=== PATIENT | female | born 1980 | race Caucasian/White ===

== ENCOUNTER 2016-06-01 13:46 | Emergency (ER) | payer SELFPAY ==
--- NOTE | 2016-06-01 13:56 | ER Document Report ---
ED Medical Screen (RME) - General Stated Complaint: SEIZURE Notes: EMS report states patient was post ictal on arrival. Vital signs were good. Patient has a history of seizures, but has been out of her medication for a couple weeks. She usually takes phenobarbital. Patient denies primary care provider. Patient complains of a headache, no other symptoms. [facility] I have greeted and performed a rapid initial assessment of this patient. A comprehensive ED assessment and evaluation of the patient, analysis of test results and completion of the medical decision making process will be conducted by additional ED providers. TRAVEL OUTSIDE OF THE [place] IN LAST 30 DAYS: No - Related Data Allergies/Adverse Reactions: amoxicillin [Amoxicillin] Allergy (Verified 06/18/14 13:58) erythromycin base [Erythromycin Base] Allergy (Verified 06/18/14 13:58) Penicillins Allergy (Verified 06/18/14 13:58) Past Medical History Neurological Medical History: Reports: Hx Seizures Past Surgical History: Reports: Hx Cardiac Surgery - implanted heart monitor, Hx Cholecystectomy, Hx Orthopedic Surgery - back - Immunizations Hx Diphtheria, Pertussis, Tetanus Vaccination: Yes Physical Exam - General General appearance: Alert, Other - crying, states she has to be in [place] by 7p - Respiratory Respiratory status: No respiratory distress Breath sounds: Normal
[2016-06-01 13:59] VITALS: BP 138/81
[2016-06-01 14:21] LABS: ABSOLUTE BASOPHILS # (AUTO) 0.1 10^3/uL (0.0-0.2); ABSOLUTE EOSINOPHILS # (AUTO) 0.2 10^3/uL (0.0-0.6); ABSOLUTE LYMPHOCYTES (AUTO) 2.2 10^3/uL (0.5-4.7); ABSOLUTE MONOCYTES (AUTO) 0.9 10^3/uL (0.1-1.4); ABSOLUTE NEUT (AUTO) 4.2 10^3/uL (1.7-8.2); BASOPHILS % (AUTO) 0.9 % (0-2); EOSINOPHILS % (AUTO) 2.2 % (0-6); HEMOGLOBIN 15.6 g/dL (12.0-15.5); HGB HCT DIFFERENCE 0.8; LYMPHOCYTES % (AUTO) 29.1 % (13-45); MEAN CORPUSCULAR HEMOGLOBIN 30.5 pg (27.0-33.4); MEAN CORPUSCULAR HGB CONC 33.9 g/dL (32.0-36.0); MEAN CORPUSCULAR VOLUME 90 fl (80-97); MONOCYTES % (AUTO) 12.2 % (3-13); RED BLOOD COUNT 5.12 10^6/uL (3.72-5.28); RED CELL DISTRIBUTION WIDTH 14.1 % (11.5-14.0); SEGMENTED NEUTROPHILS % (AUTO) 55.6 % (42-78); WHITE BLOOD COUNT 7.6 10^3/uL (4.0-10.5)
[2016-06-01 14:36] LABS: ALANINE AMINOTRANSFERASE 34 U/L (9-52); ALBUMIN 4.5 g/dL (3.5-5.0); ALKALINE PHOSPHATASE 81 U/L (38-126); ANION GAP 10 (5-19); ASPARTATE AMINO TRANSFERASE 17 U/L (14-36); BILIRUBIN,TOTAL 0.5 mg/dL (0.2-1.3); BLOOD UREA NITROGEN 9 mg/dL (7-20); CALCIUM 9.9 mg/dL (8.4-10.2); CARBON DIOXIDE 29 mmol/L (22-30); CHLORIDE 103 mmol/L (98-107); CREATININE RESULT 0.69 mg/dL (0.52-1.25); GLUCOSE 96 mg/dL (75-110); POTASSIUM 4.8 mmol/L (3.6-5.0); SODIUM 141.7 mmol/L (137-145); TOTAL PROTEIN 7.5 g/dL (6.3-8.2)
== END 2016-06-01 14:15 | disposition left against medical advice (07) ==
LOC: ER 13:46
DX: R56.9 Unspecified convulsions (principal); T42.3X6A Underdosing of barbiturates, initial encounter; Z91.14 Patient's other noncompliance with medication regimen; R51 Headache; R11.10 Vomiting, unspecified; Z88.0 Allergy status to penicillin; Z88.1 Allergy status to other antibiotic agents; Z53.20 Procedure and treatment not carried out because of patient's decision for unspecified reasons
CPT/HCPCS: 36415; 80053; 85025; 99281

== ENCOUNTER 2016-08-14 18:32 | Emergency (ER) | payer SELFPAY ==
[2016-08-14 18:56] LABS: ABSOLUTE BASOPHILS # (AUTO) 0.1 10^3/uL (0.0-0.2); ABSOLUTE EOSINOPHILS # (AUTO) 0.2 10^3/uL (0.0-0.6); ABSOLUTE LYMPHOCYTES (AUTO) 2.7 10^3/uL (0.5-4.7); ABSOLUTE MONOCYTES (AUTO) 0.7 10^3/uL (0.1-1.4); BASOPHILS % (AUTO) 0.8 % (0-2); EOSINOPHILS % (AUTO) 1.8 % (0-6); HEMATOCRIT 41.8 % (36.0-47.0); HGB HCT DIFFERENCE 0.2; LYMPHOCYTES % (AUTO) 28.2 % (13-45); MEAN CORPUSCULAR HEMOGLOBIN 30.8 pg (27.0-33.4); MEAN CORPUSCULAR HGB CONC 33.4 g/dL (32.0-36.0); MEAN CORPUSCULAR VOLUME 92 fl (80-97); MONOCYTES % (AUTO) 7.5 % (3-13); RED BLOOD COUNT 4.54 10^6/uL (3.72-5.28); RED CELL DISTRIBUTION WIDTH 13.3 % (11.5-14.0); SEGMENTED NEUTROPHILS % (AUTO) 61.7 % (42-78); WHITE BLOOD COUNT 9.7 10^3/uL (4.0-10.5)
[2016-08-14 19:16] LABS: ALANINE AMINOTRANSFERASE 23 U/L (9-52); ALCOHOL < 10 mg/dL (NONE DETECTED); ALKALINE PHOSPHATASE 68 U/L (38-126); ANION GAP 9 (5-19); ASPARTATE AMINO TRANSFERASE 18 U/L (14-36); BILIRUBIN,DIRECT 0.3 mg/dL (0.0-0.4); BILIRUBIN,TOTAL 0.5 mg/dL (0.2-1.3); BLOOD UREA NITROGEN 9 mg/dL (7-20); CALCIUM 8.7 mg/dL (8.4-10.2); CARBON DIOXIDE 23 mmol/L (22-30); CHLORIDE 106 mmol/L (98-107); CREATININE RESULT 0.72 mg/dL (0.52-1.25); GLUCOSE 97 mg/dL (75-110); MAGNESIUM 1.9 mg/dL (1.6-2.3); POTASSIUM 3.7 mmol/L (3.6-5.0); SODIUM 138.3 mmol/L (137-145); TOTAL PROTEIN 7.4 g/dL (6.3-8.2)
[2016-08-14] MEDS ORDERED: PHENOBARBITAL 64.8 MG TABLET PO ONE (19:39)
[2016-08-14] MEDS ORDERED: KETOROLAC TROMETHAMINE INJ/PF 30 MG/1 ML SDV IV ONE (20:00)
--- NOTE | 2016-08-14 20:00 | ER Document Report ---
ED General - General Chief Complaint: Seizure Stated Complaint: POSSIBLE SEIZURE Time Seen by Provider: 08/14/16 18:48 Mode of Arrival: Medic Information source: Patient Notes: 35-year-old female presents with a history of seizure disorder stating that she has not been taking her phenobarbital. Patient denies any fevers chills notes she was at work and had a seizure lasting a few minutes. Patient states she knows she has been having seizures since she has not been taking her medications as prescribed TRAVEL OUTSIDE OF THE [place] IN LAST 30 DAYS: No - HPI Onset: Just prior to arrival Onset/Duration: Sudden Quality of pain: Achy Severity: Mild Pain Level: 1 Associated symptoms: Headache Exacerbated by: Denies Relieved by: Denies Similar symptoms previously: Yes Recently seen / treated by doctor: Yes - Related Data Allergies/Adverse Reactions: amoxicillin [Amoxicillin] Allergy (Verified 08/14/16 19:00) erythromycin base [Erythromycin Base] Allergy (Verified 08/14/16 19:00) Penicillins Allergy (Verified 08/14/16 19:00) Home Medications: Current Home Medications No Home Medications 08/14/16 [History] Past Medical History - Social History Smoking Status: Current Every Day Smoker Cigarette use (# per day): Yes Chew tobacco use (# tins/day): No Smoking Education Provided: No Frequency of alcohol use: None Drug Abuse: None Family History: Reviewed & Not Pertinent Neurological Medical History: Reports: Hx Seizures Renal/ Medical History: Denies: Hx Peritoneal Dialysis Past Surgical History: Reports: Hx Cardiac Surgery - implanted heart monitor, Hx Cholecystectomy, Hx Orthopedic Surgery - back - Immunizations Hx Diphtheria, Pertussis, Tetanus Vaccination: Yes Review of Systems - Review of Systems Notes: REVIEW OF SYSTEMS: CONSTITUTIONAL : Denies fever, chills, or sweats. Denies recent illness. EENT: Denies eye, ear, throat, or mouth pain or symptoms. Denies nasal or sinus congestion or discharge. Denies throat, tongue, or mouth swelling or difficulty swallowing. CARDIOVASCULAR: Denies chest pain. Denies palpitations or racing or irregular heart beat. Denies ankle edema. RESPIRATORY: Denies cough, cold, or chest congestion. Denies shortness of breath, difficulty breathing, or wheezing. GASTROINTESTINAL: Denies abdominal pain or distention. Denies nausea, vomiting , or diarrhea. Denies blood in vomitus, stools, or per rectum. Denies black, tarry stools. Denies constipation. GENITOURINARY: Denies difficulty urinating, painful urination, burning, frequency, blood in urine, or discharge. FEMALE GENITOURINARY: Denies vaginal bleeding, heavy or abnormal periods, irregular periods. Denies vaginal discharge or odor. MUSCULOSKELETAL: Denies back or neck pain or stiffness. Denies joint pain or swelling. SKIN: Denies rash, lesions or sores. HEMATOLOGIC : Denies easy bruising or bleeding. LYMPHATIC: Denies swollen, enlarged glands. NEUROLOGICAL: admits to seizure admits to mild headache PSYCHIATRIC: Denies anxiety or stress. Denies depression, suicidal ideation, or homicidal ideation. ALL OTHER SYSTEMS REVIEWED AND NEGATIVE. Dictation was performed using [employer] voice recognition software PHYSICAL EXAMINATION: GENERAL: Well-appearing, well-nourished and in no acute distress. HEAD: Atraumatic, normocephalic. EYES: Pupils equal round and reactive to light, extraocular movements intact, conjunctiva are normal. ENT: Nares patent, oropharynx clear without exudates. Moist mucous membranes. NECK: Normal range of motion, supple without lymphadenopathy LUNGS: Breath sounds clear to auscultation bilaterally and equal. No wheezes rales or rhonchi. HEART: Regular rate and rhythm without murmurs ABDOMEN: Soft, nontender, nondistended abdomen. No guarding, no rebound. No masses appreciated. Female : deferred Musculoskeletal: Normal range of motion, no pitting or edema. No cyanosis. NEUROLOGICAL: Cranial nerves grossly intact. Normal speech, normal gait. Normal sensory, motor exams PSYCH: Normal mood, normal affect. SKIN: Warm, Dry, normal turgor, no rashes or lesions noted. Physical Exam - Vital signs Vitals: Temp Resp Pulse Ox 97.9 F 7 L 98 08/14/16 18:48 08/14/16 18:48 08/14/16 18:48 Course - Re-evaluation Re-evalutation: 08/14/16 19:58 Labwork notes no significant abnormality, a phenobarbital level was not performed given that patient states she has not taken any in the past 2 months. Patient otherwise is stable for discharge, I have insisted that she take her phenobarbital After performing a Medical Screening Examination, I estimate there is LOW risk for ACUTE GLAUCOMA, TEMPORAL ARTERITIS, MENINGITIS, INCRANIAL HEMORRHAGE, or ISCHEMIC STROKE thus I consider the discharge disposition reasonable. I have reevaluated this patient multiple times and no significant life threatening changes are noted. The patient and I have discussed the diagnosis and risks, and we agree with discharging home with close follow-up with the understanding that symptoms and presentations can change. We also discussed returning to the Emergency Department immediately if new or worsening symptoms occur. We have discussed the symptoms which are most concerning (e.g., changing or worsening symptoms, new numbness or weakness, vomiting, fever) that necessitate immediate return. 08/14/16 22:52 - Vital Signs Vital signs: Temp Pulse Resp BP Pulse Ox 97.9 F 54 L 16 121/67 97 08/14/16 18:48 08/14/16 20:03 08/14/16 20:03 08/14/16 20:03 08/14/16 20:03 - Laboratory Result Diagrams: 08/14/16 18:43 08/14/16 18:43 Laboratory results interpreted by me: 08/14/16 20:09 Urine Protein 30 H Urine Ketones TRACE H Ur Leukocyte Esterase SMALL H Discharge - Discharge Clinical Impression: Seizure-like activity, Noncompliance with medication regimen Condition: Stable Disposition: HOME, SELF-CARE Instructions: Seizure, Known Epileptic ([facility]) Additional Instructions: Please take your phenobarbital, you will seize if this medication is not taken appropriately Return immediately for any other concerns Forms: Return to Work, Work Clearance Referrals: PETAR JOSHI MD [ACTIVE STAFF] - Follow up tomorrow
[2016-08-14 20:03] VITALS: BP 121/67
[2016-08-14 20:25] LABS: APPEARANCE,URINE SLIGHTLY-CLOUDY; BILIRUBIN,URINE NEGATIVE (NEGATIVE); GLUCOSE, URINE NEGATIVE (NEGATIVE); KETONES,URINE TRACE mg/dL (NEGATIVE); LEUKOCYTE ESTERASE,URINE SMALL (NEGATIVE); NITRITE,URINE NEGATIVE (NEGATIVE); PROTEIN,URINE 30 mg/dL (NEGATIVE); URINE SPECIFIC GRAVITY 1.019; UROBILINOGEN,URINE NEGATIVE mg/dL (<2.0)
[2016-08-14 20:38] LABS: URINE BARBITURATES SCREEN UNCONFIRMED POSITIVE; URINE METHADONE SCREEN NEGATIVE; URINE OPIATES LOW NEGATIVE; URINE PHENCYCLIDINE SCREEN NEGATIVE
== END 2016-08-14 20:13 | disposition home or self-care (01) ==
LOC: ER 18:32
DX: G40.909 Epilepsy, unspecified, not intractable, without status epilepticus (principal); R51 Headache; F17.210 Nicotine dependence, cigarettes, uncomplicated; Z91.14 Patient's other noncompliance with medication regimen; Z88.0 Allergy status to penicillin; Z88.3 Allergy status to other anti-infective agents; Z90.49 Acquired absence of other specified parts of digestive tract
CPT/HCPCS: 99284; 96374; 36415; 80307 ×2; 83735; 84703; 85025; 80053; 81001; J1885; J3490

== ENCOUNTER 2016-12-30 20:26 | Emergency (ER) | payer BC ==
[2016-12-30 22:29] LABS: HEMATOCRIT 40.7 % (36.0-47.0); HEMOGLOBIN 13.9 g/dL (12.0-15.5); MEAN CORPUSCULAR HEMOGLOBIN 31.5 pg (27.0-33.4); MEAN CORPUSCULAR HGB CONC 34.2 g/dL (32.0-36.0); MEAN CORPUSCULAR VOLUME 92 fl (80-97); RED BLOOD COUNT 4.42 10^6/uL (3.72-5.28); RED CELL DISTRIBUTION WIDTH 13.8 % (11.5-14.0); WHITE BLOOD COUNT 7.2 10^3/uL (4.0-10.5)
[2016-12-30 22:39] LABS: ALANINE AMINOTRANSFERASE 36 U/L (9-52); ALKALINE PHOSPHATASE 69 U/L (38-126); ANION GAP 11 (5-19); ASPARTATE AMINO TRANSFERASE 21 U/L (14-36); BILIRUBIN,DIRECT 0.3 mg/dL (0.0-0.4); BILIRUBIN,TOTAL 0.5 mg/dL (0.2-1.3); BLOOD UREA NITROGEN 12 mg/dL (7-20); CALCIUM 9.1 mg/dL (8.4-10.2); CARBON DIOXIDE 27 mmol/L (22-30); CHLORIDE 106 mmol/L (98-107); CREATININE RESULT 0.76 mg/dL (0.52-1.25); GLUCOSE 88 mg/dL (75-110); SODIUM 143.8 mmol/L (137-145); TOTAL PROTEIN 6.4 g/dL (6.3-8.2)
[2016-12-31] MEDS ORDERED: NORMAL SALINE 1000 ML 1,000 ML IV PRN (00:09)
[2016-12-31] MEDS ORDERED: LORAZEPAM INJ 2 MG/1 ML VIAL IV ONE (00:09)
[2016-12-31] MEDS ORDERED: IBUPROFEN 400 MG TABLET PO ONE (00:09)
--- NOTE | 2016-12-31 00:10 | ER Document Report ---
ED General - General Chief Complaint: Seizure Stated Complaint: POSSIBLE SEIZURE Time Seen by Provider: 12/30/16 23:58 Mode of Arrival: Medic Information source: Patient Notes: This is a 36-year-old female with a history of seizure disorder presents to the emergency room with multiple seizures today. Patient does state that yesterday she "felt sickly". She does describe having some stomach cramping and vomiting. She states that those symptoms resolved and she was having the seizures today. She denies any fevers, cough, shortness of breath. TRAVEL OUTSIDE OF THE [place] IN LAST 30 DAYS: No - HPI Onset: This afternoon Onset/Duration: Gradual Quality of pain: Dull Severity: Mild Pain Level: 1 Associated symptoms: Nausea, Vomiting. denies: Chills, Fever, Shortness of breath Exacerbated by: Denies Relieved by: Denies Similar symptoms previously: Yes Recently seen / treated by doctor: Yes - Related Data Allergies/Adverse Reactions: amoxicillin [Amoxicillin] Allergy (Verified 12/30/16 20:29) erythromycin base [Erythromycin Base] Allergy (Verified 12/30/16 20:29) levetiracetam [From Keppra] Allergy (Verified 12/30/16 20:29) Penicillins Allergy (Verified 12/30/16 20:29) Past Medical History - General Information source: Patient - Social History Smoking Status: Current Every Day Smoker Cigarette use (# per day): No Chew tobacco use (# tins/day): No Frequency of alcohol use: None Drug Abuse: Marijuana Lives with: Family Family History: Reviewed & Not Pertinent Patient has suicidal ideation: No Patient has homicidal ideation: No - Past Medical History Cardiac Medical History: Reports: None Pulmonary Medical History: Reports: None Neurological Medical History: Reports: Hx Seizures Endocrine Medical History: Reports: None Renal/ Medical History: Denies: Hx Peritoneal Dialysis Malignancy Medical History: Reports: None GI Medical History: Reports: None Musculoskeltal Medical History: Reports None Skin Medical History: Reports None Psychiatric Medical History: Reports: None Traumatic Medical History: Reports: None Infectious Medical History: Reports: None Past Surgical History: Reports: Hx Cardiac Surgery - implanted heart monitor, Hx Cholecystectomy, Hx Orthopedic Surgery - back - Immunizations Hx Diphtheria, Pertussis, Tetanus Vaccination: Yes - 2013 Review of Systems - Review of Systems Constitutional: Chills. denies: Fever EENT: No symptoms reported Cardiovascular: No symptoms reported Respiratory: No symptoms reported Gastrointestinal: See HPI Genitourinary: No symptoms reported Female Genitourinary: No symptoms reported Musculoskeletal: Muscle stiffness Skin: No symptoms reported Hematologic/Lymphatic: No symptoms reported Neurological/Psychological: See HPI Physical Exam - Vital signs Notes: Physical exam: GENERAL: 36-year-old female, alert and oriented 3, no acute distress HEAD: Atraumatic, normocephalic. EYES: Pupils equal round and reactive to light, extraocular movements intact, sclera anicteric, conjunctiva are normal. ENT: TMs normal, nares patent, oropharynx clear without exudates. Moist mucous membranes. NECK: Normal range of motion, supple without obvious mass or JVD. LUNGS: Breath sounds clear to auscultation bilaterally and equal. No wheezes rales or rhonchi. HEART: Regular rate and rhythm without murmurs, rubs or gallops. ABDOMEN: Soft, normoactive bowel sounds. No tenderness to palpation. No guarding, no rebound. No masses appreciated. EXTREMITIES: Normal range of motion, no pitting or edema. No clubbing or cyanosis. NEUROLOGICAL: Cranial nerves II through XII grossly intact. Normal speech, moving all extremities. Motor 5/5, sensory grossly intact. PSYCH: Normal mood, normal affect. SKIN: Warm, Dry, normal turgor, no rashes or lesions noted. Course - Re-evaluation Re-evalutation: 12/31/16 02:34 Patient given IV fluids, ibuprofen and Ativan. She was observed several hours and is been doing fine. The phenobarbital level set is a send out lab and will not come back for several days. The patient will follow up with her neurologist. - Laboratory Result Diagrams: 12/30/16 21:21 12/30/16 21:21 Discharge - Discharge Clinical Impression: Seizures Condition: Stable Disposition: HOME, SELF-CARE Instructions: Seizure, Known Epileptic ([facility]) Additional Instructions: Recommendations: Keep in mind that reduced sleep and increased stress will lower the seizure threshold and precipitate seizures and those with epilepsy. Recommend drinking fluids, getting good rest and avoiding stress. Continue current antiseizure medicines. Follow-up with your neurologist Dr. Joshi Return to the emergency room for any concerns that she is seizures are getting worse. Thank you for choosing [facility] for your care. The examination and treatment you have received in the Emergency Department today has been rendered on an emergency basis only and is not intended to be a substitute for complete medical care. You should contact your follow-up physician as it is important that he or she examine you for any new or remaining problems. If given a copy of any lab tests or radiology reports, please bring them with you when you see your physician. If your problem worsens or new symptoms appear and you are unable to arrange prompt follow-up care, return to the Emergency Department. Specific signs to look out for: Fevers, chills, worsening seizures, not tolerating seizure medicines. Any other instructions: Follow up with the neurologist as discussed. Forms: Return to Work Referrals: PETAR JOSHI MD [ACTIVE STAFF] - 01/02/17
== END 2016-12-31 02:40 | disposition home or self-care (01) ==
LOC: ER 20:26
DX: R56.9 Unspecified convulsions (principal); R11.2 Nausea with vomiting, unspecified; F17.200 Nicotine dependence, unspecified, uncomplicated; Z88.0 Allergy status to penicillin; Z88.3 Allergy status to other anti-infective agents; Z90.49 Acquired absence of other specified parts of digestive tract
CPT/HCPCS: 99284; 96361; 96374; 36415; 84703; 80184; 85027; 80053; J3490; J2060; J7030

== ENCOUNTER → 2017-05-02 | Outpatient (CLI) | payer SELFPAY ==
--- NOTE | 2017-05-02 15:53 | RADIOLOGY REPORT (SQ) ---
EXAM DESCRIPTION: U/S OB TRANSVAGINAL W/O DOP COMPLETED DATE/TIME: 05/02/2017 3:23 pm REASON FOR STUDY: FIRST TRIMESTER SIZE AND DATE Z34.81 ENCOUNTER FOR SUPRVSN OF NORMAL , FIRST TRIM COMPARISON: None. TECHNIQUE: Transvaginal static and realtime grayscale images acquired of the pelvis. Additional sivakumar cted spectral and color Doppler images recorded. All images stored on PACs. bHCG: Not available. LIMITATIONS: None. FINDINGS: FETUS: Living intrauterine . EGA: 6 weeks 5 days RYAN: 12/21/2017 FHR: 139 beats per minute. SUBCHORIONIC BLEED: No. SIZE OF BLEED: Not applicable. UTERUS: No masses. No anomalies. CERVICAL LENGTH: 2.9 cm Closed. RIGHT ADNEXA: Normal ovary with normal vascular flow. No adnexal free fluid. No adnexal masses. LEFT ADNEXA: Normal ovary with normal vascular flow. No adnexal free fluid. No adnexal masses. FREE FLUID: None. OTHER: No other significant finding. IMPRESSION: LIVING INTRAUTERINE . EGA 6 weeks 5 days Trimester of : First - 0 to 13 weeks. TECHNICAL DOCUMENTATION: JOB ID: [id number] [employer]- All Rights Reserved
== END ==
LOC: RAD 13:39
PROVIDERS: ATTEND Nurse Practitioner Women's Health
DX: Z34.81 Encounter for supervision of other normal pregnancy, first trimester (principal)
CPT/HCPCS: 76817

== ENCOUNTER 2017-05-06 07:20 | Emergency (ER) | payer SELFPAY ==
[2017-05-06] MEDS ORDERED: METOCLOPRAMIDE HCL INJ/PF 10 MG/2 ML SDV IV ONE (08:14)
[2017-05-06] MEDS: NORMAL SALINE 1000 ML 1,000 ML IV PRN ×2 (08:26→08:27)
[2017-05-06 08:29] LABS: ABSOLUTE BASOPHILS # (AUTO) 0.1 10^3/uL (0.0-0.2); ABSOLUTE LYMPHOCYTES (AUTO) 1.7 10^3/uL (0.5-4.7); ABSOLUTE MONOCYTES (AUTO) 0.7 10^3/uL (0.1-1.4); ABSOLUTE NEUT (AUTO) 11.5 10^3/uL (1.7-8.2); BASOPHILS % (AUTO) 0.8 % (0-2); EOSINOPHILS % (AUTO) 0.2 % (0-6); HEMATOCRIT 43.3 % (36.0-47.0); HEMOGLOBIN 14.8 g/dL (12.0-15.5); LYMPHOCYTES % (AUTO) 11.9 % (13-45); MEAN CORPUSCULAR HEMOGLOBIN 30.9 pg (27.0-33.4); MEAN CORPUSCULAR HGB CONC 34.1 g/dL (32.0-36.0); MEAN CORPUSCULAR VOLUME 91 fl (80-97); MONOCYTES % (AUTO) 5.2 % (3-13); PLATELET COUNT 254 10^3/uL (150-450); RED BLOOD COUNT 4.78 10^6/uL (3.72-5.28); RED CELL DISTRIBUTION WIDTH 13.5 % (11.5-14.0); SEGMENTED NEUTROPHILS % (AUTO) 81.9 % (42-78); TOTAL CELLS COUNTED % (AUTO) 100 %; WHITE BLOOD COUNT 14.1 10^3/uL (4.0-10.5)
[2017-05-06 08:55] LABS: ALANINE AMINOTRANSFERASE 28 U/L (9-52); ALBUMIN 4.2 g/dL (3.5-5.0); ALKALINE PHOSPHATASE 71 U/L (38-126); ANION GAP 11 (5-19); ASPARTATE AMINO TRANSFERASE 19 U/L (14-36); BILIRUBIN,DIRECT 0.4 mg/dL (0.0-0.4); BILIRUBIN,TOTAL 0.6 mg/dL (0.2-1.3); BLOOD UREA NITROGEN 9 mg/dL (7-20); CALCIUM 9.6 mg/dL (8.4-10.2); CARBON DIOXIDE 24 mmol/L (22-30); CHLORIDE 103 mmol/L (98-107); GLUCOSE 129 mg/dL (75-110); LIPASE 58.8 U/L (23-300); SODIUM 137.7 mmol/L (137-145); TOTAL PROTEIN 7.4 g/dL (6.3-8.2)
[2017-05-06 09:41] LABS: APPEARANCE,URINE SLIGHTLY-CLOUDY; BILIRUBIN,URINE NEGATIVE (NEGATIVE); COLOR,URINE YELLOW; GLUCOSE, URINE NEGATIVE (NEGATIVE); KETONES,URINE 80 mg/dL (NEGATIVE); LEUKOCYTE ESTERASE,URINE NEGATIVE (NEGATIVE); NITRITE,URINE NEGATIVE (NEGATIVE); PROTEIN,URINE NEGATIVE (NEGATIVE); URINE SPECIFIC GRAVITY 1.025
--- NOTE | 2017-05-06 10:09 | ER Document Report ---
ED General - General Chief Complaint: Nausea/Vomiting Stated Complaint: VOMITING Time Seen by Provider: 05/06/17 08:13 TRAVEL OUTSIDE OF THE [place] IN LAST 30 DAYS: No - HPI Patient complains to provider of: Nausea vomiting Notes: Patient coming in for evaluation nausea vomiting. Patient is currently 6 weeks she is a . Patient denies any vaginal bleeding or vaginal discharge. States nausea vomiting occurred in the last 48 hours. States did have one episode of diarrhea. No other sick contacts. Patient denies any recent travel. Patient denies any past medical issues except for seizures.. Patient resting currently upon my evaluation. Denies trying any medications for her nausea at home. - Related Data Allergies/Adverse Reactions: amoxicillin [Amoxicillin] Allergy (Verified 05/06/17 07:24) erythromycin base [Erythromycin Base] Allergy (Verified 05/06/17 07:24) levetiracetam [From Keppra] Allergy (Verified 05/06/17 07:24) Penicillins Allergy (Verified 05/06/17 07:24) Past Medical History - Social History Smoking Status: Current Every Day Smoker Frequency of alcohol use: None Drug Abuse: None Family History: Reviewed & Not Pertinent Patient has suicidal ideation: No Patient has homicidal ideation: No Neurological Medical History: Reports: Hx Seizures Renal/ Medical History: Denies: Hx Peritoneal Dialysis Past Surgical History: Reports: Hx Cardiac Surgery - implanted heart monitor, Hx Cholecystectomy, Hx Orthopedic Surgery - back - Immunizations Hx Diphtheria, Pertussis, Tetanus Vaccination: Yes - 2013 Review of Systems - Review of Systems Constitutional: No symptoms reported EENT: No symptoms reported Cardiovascular: No symptoms reported Respiratory: No symptoms reported Gastrointestinal: Diarrhea, Nausea, Vomiting Genitourinary: No symptoms reported Female Genitourinary: No symptoms reported Musculoskeletal: No symptoms reported Skin: No symptoms reported Hematologic/Lymphatic: No symptoms reported Neurological/Psychological: No symptoms reported -: Yes All other systems reviewed and negative Physical Exam - Vital signs Vitals: Temp Pulse Resp BP Pulse Ox 98.1 F 83 18 147/71 H 100 05/06/17 07:33 05/06/17 07:33 05/06/17 07:33 05/06/17 07:33 05/06/17 07:33 Interpretation: Normal - General General appearance: Appears well, Alert - HEENT Head: Normocephalic, Atraumatic Eyes: Normal Pupils: PERRL - Respiratory Respiratory status: No respiratory distress Chest status: Nontender Breath sounds: Normal Chest palpation: Normal - Cardiovascular Rhythm: Regular Heart sounds: Normal auscultation Murmur: No - Abdominal Inspection: Normal Distension: No distension Bowel sounds: Normal Tenderness: Nontender Organomegaly: No organomegaly - Back Back: Normal, Nontender - Extremities General upper extremity: Normal inspection, Nontender, Normal color, Normal ROM , Normal temperature General lower extremity: Normal inspection, Nontender, Normal color, Normal ROM , Normal temperature, Normal weight bearing. No: Pat's sign - Neurological Neuro grossly intact: Yes Cognition: Normal Orientation: AAOx4 Roscoe Coma Scale Eye Opening: Spontaneous Noel Coma Scale Verbal: Oriented Noel Coma Scale Motor: Obeys Commands Noel Coma Scale Total: 15 Speech: Normal Motor strength normal: LUE, RUE, LLE, RLE Sensory: Normal - Psychological Associated symptoms: Normal affect, Normal mood - Skin Skin Temperature: Warm Skin Moisture: Dry Skin Color: Normal Course - Re-evaluation Re-evalutation: 05/06/17 15:15 The patient presents with nausea vomiting diarrhea without signs of peritonitis or other life-threatening or serious etiology. The patient appears stable for discharge and has been instructed to return immediately if the symptoms worsen in any way, or in 8-12hr if not improved for re-evaluation. The patient has been instructed to return if the symptoms worsen or change in any way. Labs revised not reveal any critical etiology. Patient able tolerate p.o. prior to discharge. - Vital Signs Vital signs: Temp Pulse Resp BP Pulse Ox 98.3 F 71 15 124/65 99 05/06/17 10:59 05/06/17 10:59 05/06/17 10:59 05/06/17 10:59 05/06/17 10:59 - Laboratory Result Diagrams: 05/06/17 08:15 05/06/17 08:15 Laboratory results interpreted by me: 05/06/17 05/06/17 05/06/17 08:15 08:15 09:09 WBC 14.1 H Seg Neutrophils % 81.9 H Lymphocytes % 11.9 L Absolute Neutrophils 11.5 H Glucose 129 H Beta HCG, Quant 55972.00 H Urine Ketones 80 H Urine Urobilinogen 2.0 H Urine Ascorbic Acid 40 H Discharge - Discharge Clinical Impression: Nausea/vomiting in Condition: Good Disposition: HOME, SELF-CARE Instructions: ([facility]), Vomiting ([facility]) Additional Instructions: Is your laboratory studies today urinalysis did not show any critical pathology. [place] [address]. sHe may take the Reglan for nausea if she cannot tolerate pills she may use the Phenergan suppositories. Do not use the Reglan and Phenergan together. I recommend following up with your [employer]ER or health department. Return to the ER for any concerns. For nausea and vomiting during I recomment: Start with 10-12.5 mg of pyridoxine (vitamin B6) three times a day for 2 days. If not fully effective, Increase to 12.5 mg of pyridoxine four times a day for 2 days. If not fully effective, Increase to 25 mg of pyridoxine three times a day for 2 days. If not fully effective, Continue 25 mg pyridoxine 3 times a day, and add 12.5 mg of doxylamine before bedtime each day for 2 days. If not fully effective, Continue 25 mg pyridoxine 3 times a day, and take 12.5 mg of doxylamine twice a day. If not fully effective, Continue 25 mg pyridoxine 3 times a day, and take 12.5 mg of doxylamine three times a day. If not fully effective, Continue 25 mg pyridoxine 3 times a day, and 12.5 mg of doxylamine 3 times a day , while adding Emetrol, one to two tablespoons (15-30 cc) taken once or twice a day as needed. (Emetrol is an [id number] mixture of sugar syrups and phosphoric acid [phosphorylated carbohydrate solution]) that acts by soothing the actual wall of the gastrointestinal tract). If not fully effective, Consult with your doctor. Prescriptions: Metoclopramide HCl [Reglan] 5 mg PO Q6 #30 tablet Promethazine HCl [Phenergan 25 mg Supp.rect] 1 supp MS Q6H #10 supp.rect Forms: Return to Work
[2017-05-06 11:14] VITALS: BP 124/65
== END 2017-05-06 10:59 | disposition home or self-care (01) ==
LOC: ER 07:20
DX: O26.891 Other specified pregnancy related conditions, first trimester (principal); R11.2 Nausea with vomiting, unspecified; N89.8 Other specified noninflammatory disorders of vagina; R19.7 Diarrhea, unspecified; Z3A.01 Less than 8 weeks gestation of pregnancy; F17.200 Nicotine dependence, unspecified, uncomplicated
CPT/HCPCS: 99284; 96361; 96374; 36415; 84702; 83690; 85025; 80053; 81001; J2765; J7030

== ENCOUNTER 2017-05-06 17:32 | Emergency (ER) | payer SELFPAY ==
[2017-05-06] MEDS ORDERED: HYDROCODONE/ACETAMINOPHEN 5-325 MG TABLET PO ONE (18:09)
--- NOTE | 2017-05-06 18:10 | ER Document Report ---
ED Seizure - General Chief Complaint: Possible seizure, vomiting Stated Complaint: VOMITING, POSSIBLE SEIZURE Time Seen by Provider: 05/06/17 18:07 Mode of Arrival: Wheelchair Information source: Patient Notes: Patient is a 36-year-old female with epilepsy who is also approximately 7 weeks who presents to the ER today for seizure prior to arrival. Boyfriend was with her and did witness the seizure, stating that it was approximately 5-7 minutes of generalized shaking that began as she was walking to the car whenever she told him "I am about to have a seizure." Patient states that she usually "hears a song come on" before her seizures start. Boyfriend states that she started seizing and he had to lay her down on the ground gently in the parking lot. He states patient did stop breathing probably for about 30 seconds during the seizure. Patient was on phenobarbital but when she found that she was she stopped it patient is not on any seizure medications at this time. - Related Data Allergies/Adverse Reactions: amoxicillin [Amoxicillin] Allergy (Verified 05/06/17 07:24) erythromycin base [Erythromycin Base] Allergy (Verified 05/06/17 07:24) levetiracetam [From Keppra] Allergy (Verified 05/06/17 07:24) Penicillins Allergy (Verified 05/06/17 07:24) Past Medical History - General Information source: Patient - Social History Smoking Status: Unknown if Ever Smoked Family History: Reviewed & Not Pertinent Neurological Medical History: Reports: Hx Seizures Renal/ Medical History: Denies: Hx Peritoneal Dialysis Past Surgical History: Reports: Hx Cardiac Surgery - implanted heart monitor, Hx Cholecystectomy, Hx Orthopedic Surgery - back - Immunizations Hx Diphtheria, Pertussis, Tetanus Vaccination: Yes - 2013 Review of Systems - Review of Systems Constitutional: No symptoms reported EENT: No symptoms reported Cardiovascular: No symptoms reported Respiratory: No symptoms reported Gastrointestinal: No symptoms reported Genitourinary: No symptoms reported Female Genitourinary: See HPI Musculoskeletal: No symptoms reported Skin: No symptoms reported Hematologic/Lymphatic: No symptoms reported Neurological/Psychological: See HPI Physical Exam - Vital signs Vitals: Pulse BP Pulse Ox 62 116/58 L 100 05/06/17 17:58 05/06/17 17:58 05/06/17 17:58 - Notes Notes: PHYSICAL EXAMINATION: GENERAL: Uncomfortable appearing, but in no acute distress. HEAD: Atraumatic, normocephalic. EYES: Pupils equal round and reactive to light, extraocular movements intact, sclera anicteric, conjunctiva are normal. NECK: Normal range of motion, supple without lymphadenopathy LUNGS: CTAB and equal. No wheezes rales or rhonchi. HEART: Regular rate and rhythm without murmurs ABDOMEN: Soft, no tenderness. No guarding, no rebound BACK: no vertebral tenderness, normal ROM GI/: no CVA tenderness EXTREMITIES: Normal range of motion, no pitting edema. No cyanosis. NEUROLOGICAL: Cranial nerves grossly intact. Normal sensory/motor exams. PSYCH: Normal mood, normal affect. SKIN: Warm, Dry, normal turgor, no rashes or lesions noted Course - Re-evaluation Re-evalutation: 05/06/17 18:49 heart tones were measured at 152 bpm. Patient did not want to wait on IV fluids and lab work and wants to just go home. I did order her 1 dose of something for her headache at this time, hydrocodone and will start her on seizure medication, I did call OBGYN who advises depakote at this time. She has a neurology appointment this week. - Vital Signs Vital signs: Temp Pulse Resp BP Pulse Ox 62 116/58 L 100 05/06/17 17:58 05/06/17 17:58 05/06/17 17:58 Discharge - Discharge Clinical Impression: Seizure Condition: Stable Disposition: HOME, SELF-CARE Prescriptions: Divalproex Sodium [Depakote] 500 mg PO TID #90 tablet.
[2017-05-06 18:57] VITALS: BP 120/71
== END 2017-05-06 18:44 | disposition home or self-care (01) ==
LOC: ER 17:32
DX: O26.891 Other specified pregnancy related conditions, first trimester (principal); R56.9 Unspecified convulsions; R11.10 Vomiting, unspecified; Z3A.01 Less than 8 weeks gestation of pregnancy
CPT/HCPCS: 99284

== ENCOUNTER → 2017-08-16 | Outpatient (CLI) | payer MEDICAID | LOC: OD 09:08 | PROVIDERS: ATTEND Midwife | DX: Z34.82 Encounter for supervision of other normal pregnancy, second trimester (principal); Z13.858 Encounter for screening for other nervous system disorders | CPT/HCPCS: 36415; 80184 ==

== ENCOUNTER → 2017-09-27 | Outpatient (CLI) | payer MEDICAID | LOC: OD 13:46 | PROVIDERS: ATTEND Specialist | DX: O09.93 Supervision of high risk pregnancy, unspecified, third trimester (principal); Z11.4 Encounter for screening for human immunodeficiency virus [HIV]; Z11.3 Encounter for screening for infections with a predominantly sexual mode of transmission; G40.89 Other seizures; Z79.899 Other long term (current) drug therapy | CPT/HCPCS: 36415; 80184; 86592; 86701 ==

== ENCOUNTER 2017-10-27 12:05 | Outpatient (CLI) | payer MEDICAID ==
[2017-10-27] MEDS ORDERED: ONDANSETRON HCL INJ/PF 4 MG/2 ML SDV IV ONE (12:22)
[2017-10-27] MEDS ORDERED: RINGERS SOLUTION,LACTATED 1,000 ML IV PRN (12:22)
[2017-10-27] MEDS ORDERED: ONDANSETRON HCL INJ/PF 4 MG/2 ML SDV ONE (12:27)
[2017-10-27 13:19] LABS: APPEARANCE,URINE CLEAR; BILIRUBIN,URINE NEGATIVE (NEGATIVE); COLOR,URINE YELLOW; GLUCOSE, URINE NEGATIVE (NEGATIVE); KETONES,URINE NEGATIVE (NEGATIVE); LEUKOCYTE ESTERASE,URINE NEGATIVE (NEGATIVE); NITRITE,URINE NEGATIVE (NEGATIVE); PROTEIN,URINE NEGATIVE (NEGATIVE); URINE SPECIFIC GRAVITY 1.013; UROBILINOGEN,URINE NEGATIVE mg/dL (<2.0)
--- NOTE | 2017-10-27 13:31 | Non Stress Test Report ---
Non Stress Test Datetime Report Generated by CPN: 10/27/2017 13:30 DEMOGRAPHIC Test Number: 1 EGA NST: 32.1 INDICATION Indication for Study: Diabetes Mellitus MONITORING Monitor Explained: Monitor Explained; Test Explained; Patient Verbalized Understanding Time on Monitor: 10/27/2017 12:31 Time off Monitor: 10/27/2017 13:04 NST Duration: 33 NST INTERVENTIONS NST Interventions: None Physician Notified NST: Dr. Lou BABY A: [id number] BABY A Movement : Present Contraction Frequency : 0 FHR Baseline : 135 Accelerations : 15X15 Decelerations : None Variability : Moderate 6-25bpm NST Review: Meets Criteria for Reactive NST NST Review and Verified By : Tom Colon, RN NST Results: Reactive NST REPORT Report Trigger: Send Report
[2017-10-27 13:36] LABS: URINE COCAINE SCREEN NEGATIVE; URINE METHADONE SCREEN NEGATIVE; URINE PHENCYCLIDINE SCREEN NEGATIVE
[2017-10-27 13:38] LABS: URINE AMPHETAMINES SCREEN NEGATIVE; URINE BENZODIAZEPINES SCREEN NEGATIVE
[2017-10-27 13:42] LABS: URINE BARBITURATES SCREEN UNCONFIRMED POSITIVE; URINE MARIJUANA (THC) SCREEN UNCONFIRMED POSITIVE
== END 2017-10-27 15:37 | disposition home or self-care (01) ==
LOC: LC 12:05
PROVIDERS: ATTEND Obstetrics & Gynecology Gynecology
PROC: 4A1HXCZ Monitoring of Products of Conception, Cardiac Rate, External Approach (ICD-10-PCS; principal; 2017-10-27)
DX: O24.419 Gestational diabetes mellitus in pregnancy, unspecified control (principal); Z3A.32 32 weeks gestation of pregnancy
CPT/HCPCS: 59025; 81001; 80307; J2405

== ENCOUNTER → 2017-11-06 | Outpatient (CLI) | payer MEDICAID | LOC: OD 10:14 | PROVIDERS: ATTEND Specialist | DX: G40.89 Other seizures (principal); Z79.899 Other long term (current) drug therapy | CPT/HCPCS: 36415; 80184 ==

== ENCOUNTER 2017-11-14 10:27 | Inpatient (IN) | payer MEDICAID ==
[2017-12-15] MEDS ORDERED: RINGERS SOLUTION,LACTATED 1,000 ML IV PRN (20:08)
[2017-12-15] MEDS ORDERED: ZOLPIDEM TARTRATE 5 MG TABLET PO PRN (20:13)
[2017-12-15] MEDS ORDERED: DINOPROSTONE 10 MG VAGINAL INSERT.SR PV ONE (20:13)
[2017-12-15] MEDS ORDERED: RINGERS SOLUTION,LACTATED 300 ML IV ONE (20:13)
[2017-12-15] MEDS ORDERED: ACETAMINOPHEN 325 MG TABLET PO PRN (20:13)
[2017-12-15] MEDS ORDERED: MAG HYDROX/AL HYDROX/SIMETH SUSP 30 ML UDCUP PO PRN (20:13)
[2017-12-15 20:42] LABS: ABSOLUTE BASOPHILS # (AUTO) 0.1 10^3/uL (0.0-0.2); ABSOLUTE EOSINOPHILS # (AUTO) 0.2 10^3/uL (0.0-0.6); ABSOLUTE LYMPHOCYTES (AUTO) 2.3 10^3/uL (0.5-4.7); ABSOLUTE MONOCYTES (AUTO) 0.9 10^3/uL (0.1-1.4); ABSOLUTE NEUT (AUTO) 11.2 10^3/uL (1.7-8.2); BASOPHILS % (AUTO) 0.5 % (0-2); EOSINOPHILS % (AUTO) 1.4 % (0-6); HEMATOCRIT 35.2 % (36.0-47.0); HEMOGLOBIN 12.1 g/dL (12.0-15.5); LYMPHOCYTES % (AUTO) 15.8 % (13-45); MEAN CORPUSCULAR HEMOGLOBIN 30.9 pg (27.0-33.4); MEAN CORPUSCULAR HGB CONC 34.3 g/dL (32.0-36.0); MEAN CORPUSCULAR VOLUME 90 fl (80-97); MONOCYTES % (AUTO) 6.4 % (3-13); PLATELET COUNT 218 10^3/uL (150-450); RED BLOOD COUNT 3.91 10^6/uL (3.72-5.28); RED CELL DISTRIBUTION WIDTH 14.2 % (11.5-14.0); SEGMENTED NEUTROPHILS % (AUTO) 75.9 % (42-78); TOTAL CELLS COUNTED % (AUTO) 100 %; WHITE BLOOD COUNT 14.7 10^3/uL (4.0-10.5)
[2017-12-15 20:59] LABS: APPEARANCE,URINE CLOUDY; BILIRUBIN,URINE NEGATIVE (NEGATIVE); COLOR,URINE YELLOW; GLUCOSE, URINE NEGATIVE (NEGATIVE); KETONES,URINE NEGATIVE (NEGATIVE); LEUKOCYTE ESTERASE,URINE SMALL (NEGATIVE); NITRITE,URINE NEGATIVE (NEGATIVE); PROTEIN,URINE NEGATIVE (NEGATIVE); URINE SPECIFIC GRAVITY 1.023
[2017-12-15] MEDS ORDERED: PHENOBARBITAL 64.8 MG TABLET PO SCH (21:00)
[2017-12-15 21:21] LABS: URINE AMPHETAMINES SCREEN NEGATIVE; URINE BENZODIAZEPINES SCREEN NEGATIVE; URINE COCAINE SCREEN NEGATIVE; URINE METHADONE SCREEN NEGATIVE; URINE PHENCYCLIDINE SCREEN NEGATIVE
[2017-12-15] MEDS ORDERED: DINOPROSTONE 10 MG VAGINAL INSERT.SR ONE (21:22)
[2017-12-15 21:26] LABS: URINE MARIJUANA (THC) SCREEN UNCONFIRMED POSITIVE
[2017-12-15 21:27] LABS: URINE BARBITURATES SCREEN UNCONFIRMED POSITIVE
[2017-12-15] MEDS ORDERED: INSULIN REG, HUMAN 100 UNIT/ML 3 ML VIAL (PYX) SUBCUT ONE (22:30)
[2017-12-15] MEDS ORDERED: INSULIN NPH (ISOPHANE), HUMAN 100 UNIT/ML 3 ML SUBCUT ONE (22:30)
[2017-12-15] MEDS ORDERED: INSULIN NPH (ISOPHANE), HUMAN 100 UNIT/ML 3 ML ONE (23:19)
[2017-12-15] MEDS ORDERED: PHENOBARBITAL 64.8 MG TABLET PO ONE (23:45)
[2017-12-16] MEDS ORDERED: INSULIN NPH (ISOPHANE), HUMAN 100 UNIT/ML 3 ML SUBCUT ONE (08:21)
[2017-12-16] MEDS ORDERED: INSULIN NPH (ISOPHANE), HUMAN 100 UNIT/ML 3 ML ONE (08:23)
[2017-12-16] MEDS ORDERED: OXYTOCIN/NORMAL SALINE 20 UNIT/1,000 ML RTUINJ IV PRN (09:00)
[2017-12-16] MEDS ORDERED: PHENOBARBITAL 64.8 MG TABLET ONE ×2 (11:06→22:18)
[2017-12-16] MEDS: PHENOBARBITAL 64.8 MG TABLET PO SCH ×2 (11:07→22:24)
[2017-12-16] MEDS ORDERED: OXYTOCIN 10 UNIT/ML VIAL ONE (12:26)
[2017-12-16] MEDS ORDERED: LIDOCAINE 1% INJ-PF (10 MG/ML) 30 ML SDV ONE (12:27)
[2017-12-16] MEDS ORDERED: MISOPROSTOL 0.2 MG TABLET ONE (12:27)
[2017-12-16] MEDS ORDERED: OXYTOCIN/NORMAL SALINE 20 UNIT/1,000 ML RTUINJ ONE (12:27)
--- NOTE | 2017-12-16 12:55 | Admission Physical ---
Datetime Report Generated by CPN: 12/16/2017 12:55 CURRENT ADMISSION Chief Complaint: Scheduled Induction of Labor Indication for Induction- Other: GDM A2 Admit Impression : Term, Intrauterine Admit Plan: Admit to Unit; Initiate Labor Induction Protocol ALLERGIES Medication Allergies: Yes Medication Allergies: Penicillins/SV/Hives (12/15/2017); erythromycin base/MO/Vomiting (12/15/2017); amoxicillin/SV/Hives (12/15/2017); levetiracetam/MO/Neurologic effe (12/15/2017) Latex: No Latex Allergies Food Allergies: None Environmental Allergies: None OBSTETRICAL HISTORY EDC: 12/21/2017 00:00 : 2 Para: 1 Term: 1 : 0 SAB: 0 IAB: 0 Ectopic: 0 Livin Cesareans: 0 VBACs: 0 Multiple Births: 0 Gestational Diabetes: Yes Rh Sensitization: No Incompetent Cervix: No RAZA: No Infertility: No ART Treatment: No Uterine Anomaly: No IUGR: Yes Hx Previous C/S: No Macrosomia: No Hx Loss/Stillborn: No PIH: No Hx : No Placenta Previa/Abruption: No Depression/PP Depression: No PTL/PROM: No Post Hemorrhage: No Current Procedures: Ultrasound; NST; BPP Obstetrical History Comments: G1 - 05/2006 - at 43weeks, [place] G2 - Current - GDM on insulin, AMA, iugr SEE RECORDS Alcohol: No Marijuana : Yes Previous Treatment: None Marijuana Comments: Uses marijuana for epilepsy - "helps to slow brain activity" Cocaine: No Other Illicit Drugs: No Cigarettes: Current Everyday Smoker. [id number] MEDICAL HISTORY Diabetes: No Blood Transfusion: No Pulmonary Disease (Asthma, TB): No Breast Disease: No Hypertension: No Nurses Superintendent Surgery: No Heart Disease: Yes Hosp/Surgery: Yes Autoimmune Disorder: No Anesthetic Complications: No Kidney Disease: No Abnormal Pap Smear: No Neuro/Epilepsy: Yes Psychiatric Disorders: No Other Medical Diseases: No Hepatitis/Liver Disease: No Significant Family History: No Varicosities/Phlebitis: No Trauma/Violence : No Thyroid Dysfunction: No Medical History Comments: Hx of abnormal heart beat - implanted registered nurse cardiac Epilepsy - on phenobabitol and THC (last seizure 04/2017) Hospitalized for childbirth, epilepsy, cholecystectomy, L1 discectomy, abnormal heart beat smoker-cigarettes and marijuana INFECTIOUS HISTORY Gonorrhea: No Genital Herpes: No Chlamydia: No Tuberculosis: No Syphilis: No Hepatitis: No HIV/AIDS Exposure: No Rash or Viral Illness: No HPV: No PHYSICAL EXAM General: Normal HEENT: Normal Neurologic: Normal Thyroid: Deferred Heart: Normal Lungs: Normal Breast: Normal Back: Normal Abdomen: Normal Genitourinary Exam: Normal Extremities: Normal DTRs: Deferred Pelvic Type: Adequate Physical Exam Comments: pelvis proven to 6lb Vital Signs: Reviewed; Within Normal Limits VAGINAL EXAM Dilatation: 3 Effacement: 70 Station: -2 Contraction Comments: irreg MEMBRANES Membranes: Intact FETUS A EGA: 39.2 Monitoring: External US FHR- Baseline: 120 Accelerations: 15X15 Decelerations: Variable FHR Category: Category II Estimated Weight (gm): 3200 Presentation: Vertex Admit Comment: dated by 10w sono, AMA, GDM on insulin, hx seizure disorder on phenobarbitol, tovacco use, implanted heart monitor, THC use for seizure disorder. admitted for IOL. anders balloon placed at 1230. P: start pitocin when FB out, anticipate PLANS FOR LABOR AND DELIVERY Labor and Delivery: None Pain Management: Natural Feeding Preference: Both Benefit of Breast Feed Discussed: Yes Circumcision: N/A INFORMED CONSENT Assignment: Fabiola Ruelas MD Signature: with User ID: [email or web address] : with User ID: [email or web address]
[2017-12-16] MEDS ORDERED: ACETAMINOPHEN 325 MG TABLET ONE (14:42)
[2017-12-16] MEDS ORDERED: ACETAMINOPHEN 325 MG TABLET PO ONE (15:30)
[2017-12-16] MEDS ORDERED: ONDANSETRON HCL INJ/PF 4 MG/2 ML SDV ONE (20:46)
[2017-12-16] MEDS ORDERED: PROMETHAZINE HCL INJ 25 MG/1 ML VIAL IV ONE (21:49)
[2017-12-16] MEDS ORDERED: NALBUPHINE HCL INJ 10 MG/1 ML AMPULE INJ ONE (21:49)
[2017-12-16] MEDS ORDERED: NALBUPHINE HCL INJ 10 MG/1 ML AMPULE ONE ×2 (21:50)
[2017-12-16] MEDS ORDERED: PROMETHAZINE HCL INJ 25 MG/1 ML VIAL ONE (21:50)
[2017-12-17] MEDS ORDERED: DIPH/PERTUSS(ACELL)/TETANUS VAC/PF 0.5 ML SYR (>=10YO) IM PRN (00:23)
[2017-12-17] MEDS ORDERED: BENZOCAINE/MENTHOL AEROSOL SPRAY 56 ML TOP PRN (00:23)
[2017-12-17] MEDS ORDERED: MEASLES,MUMPS&RUBELLA VACC/PF 0.5 ML VIAL SUBCUT PRN (00:23)
[2017-12-17] MEDS ORDERED: ACETAMINOPHEN WITH CODEINE #3 TABLET PO PRN ×2 (00:23)
[2017-12-17] MEDS ORDERED: DIBUCAINE 1% OINTMENT 28 GM TP PRN (00:23)
[2017-12-17] MEDS ORDERED: OXYTOCIN/NORMAL SALINE 20 UNIT/1,000 ML RTUINJ IV PRN (00:23)
[2017-12-17] MEDS ORDERED: ZOLPIDEM TARTRATE 5 MG TABLET PO PRN (00:23)
[2017-12-17] MEDS ORDERED: IBUPROFEN 800 MG TABLET ONE (00:25)
--- NOTE | 2017-12-17 03:25 | Delivery Summary ---
Del Sum A-C Datetime Report Generated by CPN: 12/17/2017 03:24 DELIVERY PERSONNEL DELIVERY PERSONNEL: [id number] Delivery Doctor:: Fabiola Ruelas MD Labor and Delivery Nurse:: Haylee Moreno RN Nursery Nurse:: Osiris Carey RN Forestry Consultant/DATA CONVERSION ANALYST: Nick Ertel, DATA CONVERSION ANALYST MATERNAL INFORMATION Delivery Anesthesia: None Medications After Delivery: Pitocin Drip 20 Units/1000ml NSS; Cytotec 1000mcg Per Rectum/Vagina Maternal Complications: None Provider Comments: of a viable female at 0007 with an OA presentation; APGARS 9 @ 1, 9 @5. No lacerations LABOR SUMMARY EDC: 12/21/2017 00:00 No. Babies in Womb: 1 Attempted: No Labor Anesthesia: IV Sedation LABOR INFORMATION Reason for Induction: Intrauterine Growth Retardation; Maternal Diabetes Onset of Labor: 12/16/2017 16:58 Complete Dilatation: 12/16/2017 23:54 Cervical Ripening Agents: Cervidil; Norman Balloon Oxytocin: Induction Group B Beta Strep: Negative Antibiotics # of Doses: 0 Antibiotics Time of Last Dose: N/A Name of Antibiotic Given: N/A Steroids Given: None Reason Steroids Not Administered: Not Applicable MEMBRANES Membranes Rupture Method: Artificial Rupture of Membranes: 12/16/2017 16:58 Length of Rupture (hr): 7.15 Amniotic Fluid Color: Moderate Meconium Amniotic Fluid Amount: Moderate Amniotic Fluid Odor: Normal STAGES OF LABOR Stage 1 hr: 6 Stage 1 min: 56 Stage 2 hr: 0 Stage 2 min: 13 Stage 3 hr: 0 Stage 3 min: 3 Total Time in Labor hr: 7 Total Time in Labor min: 12 VAGINAL DELIVERY Episiotomy: None Laceration #1: None Laceration Extension #1: N/A Laceration Repair: Not Applicable Sponge Count Correct: N/A Sharps Count Correct: N/A CSECTION DELIVERY Primary Indication: N/A Secondary Indication: N/A CSection Incidence: N/A Labor: N/A Elective: N/A CSection Incision: N/A BABY A INFORMATION Infant Delivery Date/Time: 12/17/2017 00:07 Method of Delivery: Vaginal Born in Route : No : N/A Forceps: N/A Vacuum Extraction: N/A Shoulder Dystocia : No PRESENTATION/POSITION BABY A Presentation: Cephalic Cephalic Presentation: Vertex Vertex Position: Occipital Anterior Breech Presentation: N/A PLACENTA INFORMATION BABY A Placenta Delivery Time : 12/17/2017 00:10 Placenta Method of Delivery: Spontaneous Placenta Status: Delivered SCORES BABY A Heart Rate 1 min: >100 bpm Resp Effort 1 min: Good Cry Reflex Irritability 1 min: Cough or Sneeze or Pulls Away Muscle Tone 1 min: Active Motion Color 1 min: Body Bentley, Extremities Blue Resuscitation Effort 1 min: Tactile Stimulation SCORE 1 MIN: 9 Heart Rate 5 min: >100 bpm Resp Effort 5 min: Good Cry Reflex Irritability 5 min: Cough or Sneeze or Pulls Away Muscle Tone 5 min: Active Motion Color 5 min: Body Bentley, Extremities Blue Resuscitation Effort 5 min: Tactile Stimulation SCORE 5 MIN: 9 INFANT INFORMATION BABY A Gestational Age at Delivery: 39.2 Gestational Status: Full Term- 39- 40.6 Weeks Infant Outcome : Liveborn Condition : Stable Infant Sex: Female IDENTIFICATION BABY A Infant Verification Date/Time: 12/17/2017 00:20 ID Band Number: [id number] Mother's Name Verified: Yes Infant RN Verifying : Henry Moreno RN Additional Verifying Personnel: R. Ertel WEIGHT/LENGTH BABY A Infant Birthweight (gm): 3000 Infant Weight (lb): 6 Weight (oz): 10 Length (in): 19.50 Infant Length (cm): 49.53 CORD INFORMATION BABY A No. Cord Vessels: 3 Nuchal Cord : N/A Cord Blood Taken: Yes-For Storage (Mom's Blood type +) Suction: Mouth; Nose ASSESSMENT BABY A Skin to Skin: Yes BABY B INFORMATION : N/A SIGNATURES Signature: with User ID: [email or web address] : I was personally available for consultation and serving as supervising physician for the MLP.
[2017-12-17] MEDS: IBUPROFEN 800 MG TABLET PO SCH ×3 (05:44→21:49)
--- NOTE | 2017-12-17 10:10 | PDOC PROGRESS REPORT ---
Subjective-OB Progress Note for:: 12/17/17 Subjective: Delivery Day, doing well, resting in bed, has voided Physical Exam (OB) Vital Signs: Temp Pulse Resp BP Pulse Ox 97.7 F 64 16 126/64 H 99 12/17/17 08:53 12/17/17 08:53 12/17/17 08:53 12/17/17 08:53 12/17/17 08:53 Intake & Output 12/16/17 12/17/17 12/18/17 06:59 06:59 06:59 Weight 125.1 kg - General General Appearance: Appears well, Alert In distress: None - PIH/Pre-Eclampsia Clonus: Negative Headache: Absent Epigastric Pain: No Visual Changes: No - Lochia Lochia Amount: Small 10-25 ml Lochia Color: Rubra/Red - Abdomen Description: Soft, Round Fundal Description: Firm Fundal Height: u/u - u/2 Objective-Diagnostic Laboratory: 12/15/17 20:25 Assessment and Plan(PN) - Assessment and Plan (1) (normal spontaneous vaginal delivery) Is this a current diagnosis for this admission?: Yes (2) Normal course Is this a current diagnosis for this admission?: Yes - Time Spent with Patient Time with patient: Less than 15 minutes - Disposition Anticipated Discharge: Home Within: within 48 hours
[2017-12-17] MEDS: FERROUS SULFATE 325 MG TABLET PO SCH ×2 (10:12→17:32)
[2017-12-17] MEDS: PRENATAL VITAMIN W DHA CAPSULE PO SCH (10:12)
[2017-12-17] MEDS: DOCUSATE SODIUM 100 MG CAPSULE PO SCH ×2 (10:12→17:32)
[2017-12-17] MEDS: SENNOSIDES/DOCUSATE 8.6-50 MG 1 EACH TABLET PO SCH (10:12)
[2017-12-17] MEDS: PHENOBARBITAL 64.8 MG TABLET PO SCH ×2 (10:13→21:45)
[2017-12-18] MEDS: IBUPROFEN 800 MG TABLET PO SCH ×3 (06:36→22:21)
[2017-12-18 08:12] LABS: HEMATOCRIT 34.1 % (36.0-47.0); HEMOGLOBIN 11.5 g/dL (12.0-15.5); MEAN CORPUSCULAR HEMOGLOBIN 30.7 pg (27.0-33.4); MEAN CORPUSCULAR HGB CONC 33.8 g/dL (32.0-36.0); MEAN CORPUSCULAR VOLUME 91 fl (80-97); PLATELET COUNT 197 10^3/uL (150-450); RED BLOOD COUNT 3.76 10^6/uL (3.72-5.28); RED CELL DISTRIBUTION WIDTH 14.1 % (11.5-14.0); WHITE BLOOD COUNT 13.3 10^3/uL (4.0-10.5)
[2017-12-18] MEDS: SENNOSIDES/DOCUSATE 8.6-50 MG 1 EACH TABLET PO SCH (09:38)
[2017-12-18] MEDS: FERROUS SULFATE 325 MG TABLET PO SCH ×2 (09:38→17:48)
[2017-12-18] MEDS: DOCUSATE SODIUM 100 MG CAPSULE PO SCH ×2 (09:38→17:48)
[2017-12-18] MEDS: PHENOBARBITAL 64.8 MG TABLET PO SCH ×2 (09:38→22:21)
[2017-12-18] MEDS: PRENATAL VITAMIN W DHA CAPSULE PO SCH (09:38)
--- NOTE | 2017-12-18 18:48 | PDOC PROGRESS REPORT ---
Subjective-OB Progress Note for:: 12/18/17 Subjective: 37yo G2 now P2 s/p ppd1. Ambulating, and voiding without difficulty. Denies any concerns at this time Physical Exam (OB) Vital Signs: Temp Pulse Resp BP Pulse Ox 97.4 F 63 17 141/72 H 99 12/18/17 08:10 12/18/17 08:10 12/18/17 08:10 12/18/17 08:10 12/18/17 08:10 Intake & Output 12/17/17 12/18/17 12/19/17 06:59 06:59 06:59 Intake Total 600 500 Balance 600 500 - General General Appearance: Appears well In distress: None - PIH/Pre-Eclampsia Clonus: Negative Headache: Absent Epigastric Pain: No Visual Changes: No - Episiotomy/Laceration Site Condition: N/A - Lochia Lochia Amount: Scant < 10 ml Lochia Color: Rubra/Red - Abdomen Description: Soft Hernia Present: No Fundal Description: Firm, Midline Fundal Height: u/u - u/2 - Respiratory Respiratory Status: No respiratory distress - Extremities Upper extremity: Normal inspection Lower extremities: Normal inspection - Neurological Cognition: Normal Orientation: AAOx4 - Psychological Associated symptoms: Normal affect, Normal mood Objective-Diagnostic Laboratory: 12/18/17 07:37 12/18/17 07:37 WBC 13.3 H RBC 3.76 Hgb 11.5 L Hct 34.1 L MCV 91 MCH 30.7 MCHC 33.8 RDW 14.1 H Plt Count 197 Assessment and Plan(PN) - Assessment and Plan (1) Drug use affecting Qualifiers: Trimester: unspecified trimester Qualified Code(s): O99.320 - Drug use complicating , unspecified trimester Is this a current diagnosis for this admission?: Yes Plan: discharge planning consult at delivery (2) Gestational diabetes mellitus (GDM) affecting second Is this a current diagnosis for this admission?: Yes Plan: will need pp testing (3) IUGR (intrauterine growth retardation), delivered, current hospitalization Is this a current diagnosis for this admission?: Yes Plan: delivered (4) Tobacco smoking affecting Qualifiers: Trimester: unspecified trimester Qualified Code(s): O99.330 - Smoking ( tobacco) complicating , unspecified trimester Is this a current diagnosis for this admission?: Yes Plan: cessation encouraged (5) Epilepsy Qualifiers: Epilepsy type: unspecified Is this a current diagnosis for this admission?: Yes Plan: pt has implanted heart monitor (6) (normal spontaneous vaginal delivery) Is this a current diagnosis for this admission?: Yes Plan: routine pp care (7) Normal course Is this a current diagnosis for this admission?: Yes Plan: routine pp care - Time Spent with Patient Time with patient: Less than 15 minutes Smoking Education Provided: Over 3 minutes Medications reviewed and adjusted accordingly: Yes - Disposition Anticipated Discharge: Home Within: within 24 hours
[2017-12-19] MEDS: IBUPROFEN 800 MG TABLET PO SCH (05:55)
--- NOTE | 2017-12-19 09:09 | PDOC PROGRESS REPORT ---
Subjective-OB Progress Note for:: 12/19/17 Subjective: Doing well, no c/o, ready to go home, bottle feeding Physical Exam (OB) Vital Signs: Temp Pulse Resp BP Pulse Ox 97.7 F 64 18 143/82 H 100 12/19/17 08:04 12/19/17 08:04 12/19/17 08:04 12/19/17 08:04 12/19/17 08:04 Intake & Output 12/18/17 12/19/17 12/20/17 06:59 06:59 06:59 Intake Total 600 500 Balance 600 500 - PIH/Pre-Eclampsia Clonus: Negative Headache: Absent Epigastric Pain: No Visual Changes: No - Lochia Lochia Amount: Scant < 10 ml Lochia Color: Rubra/Red - Abdomen Description: Tender, Soft Hernia Present: No Fundal Description: Firm, Midline Fundal Height: u/u - u/2 Objective-Diagnostic Laboratory: 12/18/17 07:37 Assessment and Plan(PN) - Assessment and Plan (1) (normal spontaneous vaginal delivery) Is this a current diagnosis for this admission?: Yes (2) Normal course Is this a current diagnosis for this admission?: Yes (3) Drug use affecting Qualifiers: Trimester: unspecified trimester Qualified Code(s): O99.320 - Drug use complicating , unspecified trimester Is this a current diagnosis for this admission?: Yes (4) Gestational diabetes mellitus (GDM) affecting second Is this a current diagnosis for this admission?: Yes (5) IUGR (intrauterine growth retardation), delivered, current hospitalization Is this a current diagnosis for this admission?: Yes (6) Tobacco smoking affecting Qualifiers: Trimester: unspecified trimester Qualified Code(s): O99.330 - Smoking ( tobacco) complicating , unspecified trimester Is this a current diagnosis for this admission?: Yes (7) Epilepsy Qualifiers: Epilepsy type: unspecified Is this a current diagnosis for this admission?: Yes - Time Spent with Patient Smoking Education Provided: Over 3 minutes Medications reviewed and adjusted accordingly: Yes - Disposition Anticipated Discharge: Home Within: Other - home today
--- NOTE | 2017-12-19 09:15 | PDOC DISCHARGE SUMMARY ---
Final Diagnosis Discharge Date: 12/19/17 - Final Diagnosis (1) (normal spontaneous vaginal delivery) Is this a current diagnosis for this admission?: Yes (2) Normal course Is this a current diagnosis for this admission?: Yes (3) Drug use affecting Is this a current diagnosis for this admission?: Yes (4) Gestational diabetes mellitus (GDM) affecting second Is this a current diagnosis for this admission?: Yes (5) IUGR (intrauterine growth retardation), delivered, current hospitalization Is this a current diagnosis for this admission?: Yes (6) Tobacco smoking affecting Is this a current diagnosis for this admission?: Yes (7) Epilepsy Is this a current diagnosis for this admission?: Yes Discharge Data - Discharge Medication Home Medications: Pediatric Multivitamin No.42 [Flintstones] 2 each PO DAILY 10/27/17 Phenobarbital 129.6 mg PO BID 10/27/17 Gestational Age: 39.2 Reason(s) for Admission: Induction of Labor, Gestional Diabetes Admission Note: IUGR Procedures: NST, Ultrasound Intrapartum Procedure(s): Spontaneous Vaginal Delivery - [place] Data Baby 1 Female at 1 minute: 9 at 5 minutes: 9 Weight: 3.005 kg Home with Mother: Yes Complications: No - Diagnosis Test Laboratory: Temp Pulse Resp BP Pulse Ox 97.7 F 64 18 143/82 H 100 12/19/17 08:04 12/19/17 08:04 12/19/17 08:04 12/19/17 08:04 12/19/17 08:04 12/15/17 12/15/17 12/18/17 20:25 20:44 07:37 RBC 3.91 3.76 Hgb 12.1 11.5 L Hct 35.2 L 34.1 L Urine Opiates Screen NEGATIVE - Discharge information/Instructions Discharge Activity: Activity As Tolerated, No Lifting Over 10 Pounds, No Lifting /Push/Pulling, Pelvic Rest Discharge Diet: As Tolerated, Regular Disposition: HOME, SELF-CARE Follow up with: [facility] in: 2, Weeks
[2017-12-19] MEDS: DOCUSATE SODIUM 100 MG CAPSULE PO SCH (09:58)
[2017-12-19] MEDS: SENNOSIDES/DOCUSATE 8.6-50 MG 1 EACH TABLET PO SCH (09:58)
[2017-12-19] MEDS: PRENATAL VITAMIN W DHA CAPSULE PO SCH (09:58)
[2017-12-19] MEDS: FERROUS SULFATE 325 MG TABLET PO SCH (09:58)
[2017-12-19] MEDS: PHENOBARBITAL 64.8 MG TABLET PO SCH (09:58)
[2017-12-19 12:02] VITALS: BP 129/58
== END 2017-12-19 12:04 | disposition home or self-care (01) | DRG 806 ==
LOC: LR 12-15 19:44 → 2S 12-17 02:01
PROVIDERS: ADMIT Obstetrics & Gynecology; ATTEND Obstetrics & Gynecology
PROC: 10E0XZZ Delivery of Products of Conception, External Approach (ICD-10-PCS; principal; 2017-12-17)
DX: O24.424 Gestational diabetes mellitus in childbirth, insulin controlled (principal); O99.324 Drug use complicating childbirth; Z37.0 Single live birth; O99.354 Diseases of the nervous system complicating childbirth; O36.5930 Maternal care for other known or suspected poor fetal growth, third trimester, not applicable or unspecified; O77.0 Labor and delivery complicated by meconium in amniotic fluid; O99.334 Smoking (tobacco) complicating childbirth; F12.90 Cannabis use, unspecified, uncomplicated; F17.210 Nicotine dependence, cigarettes, uncomplicated; G40.909 Epilepsy, unspecified, not intractable, without status epilepticus; Z3A.39 39 weeks gestation of pregnancy
CPT/HCPCS: 36415; 80307; 80349; 81005; 82962; 85025; 85027; 86592; 86850; 86900; 86901; C1758; G0480; J1815; J2300; J2405; J2550; J2590; J3490

== ENCOUNTER → 2017-11-25 | Outpatient (CLI) | payer MEDICAID ==
[2017-11-25 14:16] LABS: HEMATOCRIT 38.6 % (36.0-47.0); MEAN CORPUSCULAR HEMOGLOBIN 30.6 pg (27.0-33.4); MEAN CORPUSCULAR HGB CONC 33.6 g/dL (32.0-36.0); MEAN CORPUSCULAR VOLUME 91 fl (80-97); PLATELET COUNT 218 10^3/uL (150-450); RED BLOOD COUNT 4.24 10^6/uL (3.72-5.28); RED CELL DISTRIBUTION WIDTH 13.9 % (11.5-14.0); WHITE BLOOD COUNT 14.2 10^3/uL (4.0-10.5)
[2017-11-25 14:43] LABS: ASPARTATE AMINO TRANSFERASE 15 U/L (14-36)
[2017-11-25 14:44] LABS: UR PRO/CREAT RATIO RESULT 0.2 mg/mg (0.0-0.2); URINE CREATININE 79.2 mg/dL (16-327); URINE PROTEIN 18.6 mg/dL (<12)
== END ==
LOC: OD 13:32
PROVIDERS: ATTEND Registered Nurse Women's Health Care, Ambulatory
DX: O16.9 Unspecified maternal hypertension, unspecified trimester (principal)
CPT/HCPCS: 36415; 82565; 82570; 83615; 84156; 84450; 84550; 85027

== ENCOUNTER 2017-12-03 09:04 | Outpatient (CLI) | payer MEDICAID ==
[2017-12-03] MEDS ORDERED: RINGERS SOLUTION,LACTATED 1,000 ML IV PRN (09:22)
[2017-12-03] MEDS ORDERED: DEXTROSE 5%-WATER 500 ML IV PRN (09:22)
[2017-12-03] MEDS ORDERED: ONDANSETRON HCL INJ/PF 4 MG/2 ML SDV IV ONE (09:23)
[2017-12-03] MEDS ORDERED: ONDANSETRON HCL INJ/PF 4 MG/2 ML SDV ONE (09:25)
[2017-12-03 10:19] LABS: APPEARANCE,URINE SLIGHTLY-CLOUDY; BILIRUBIN,URINE NEGATIVE (NEGATIVE); COLOR,URINE YELLOW; GLUCOSE, URINE NEGATIVE (NEGATIVE); KETONES,URINE NEGATIVE (NEGATIVE); LEUKOCYTE ESTERASE,URINE NEGATIVE (NEGATIVE); NITRITE,URINE NEGATIVE (NEGATIVE); PROTEIN,URINE 30 mg/dL (NEGATIVE); URINE SPECIFIC GRAVITY 1.023
[2017-12-03 10:28] LABS: URINE AMPHETAMINES SCREEN NEGATIVE; URINE BENZODIAZEPINES SCREEN NEGATIVE; URINE COCAINE SCREEN NEGATIVE; URINE METHADONE SCREEN NEGATIVE; URINE PHENCYCLIDINE SCREEN NEGATIVE
[2017-12-03 10:34] LABS: URINE BARBITURATES SCREEN UNCONFIRMED POSITIVE; URINE MARIJUANA (THC) SCREEN UNCONFIRMED POSITIVE
== END 2017-12-03 11:25 | disposition home or self-care (01) ==
LOC: LC 09:04
PROVIDERS: ATTEND Student in an Organized Health Care Education/Training Program
PROC: 4A1HXCZ Monitoring of Products of Conception, Cardiac Rate, External Approach (ICD-10-PCS; principal; 2017-12-03)
DX: O47.1 False labor at or after 37 completed weeks of gestation (principal); Z3A.37 37 weeks gestation of pregnancy
CPT/HCPCS: 59025; 81005; 80307; J2405

== ENCOUNTER 2018-07-04 09:56 | Emergency (ER) | payer SELFPAY ==
[2018-07-04 10:06] VITALS: BP 139/62
[2018-07-04] MEDS ORDERED: DEXAMETHASONE SOD PHOS INJ 10 MG/1 ML VIAL IM ONE (10:59)
[2018-07-04] MEDS ORDERED: KETOROLAC TROMETHAMINE 60 MG/2 ML SDV IM ONE (10:59)
[2018-07-04] MEDS ORDERED: LIDOCAINE 5% (700 MG) TRANSDERMAL ADH..PATCH TP ONE (10:59)
--- NOTE | 2018-07-04 11:01 | ER Document Report ---
HPI - HPI Time Seen by Provider: 07/04/18 10:18 Pain Level: 5 Context: Patient is a 37-year-old female who presents the emergency department with a chief complaint of sciatic nerve pain on the right side. She has had her symptoms for the past 3 weeks. She states that she has had this pain on and off for the past few years. She states that she is feeling some numbness in her feet. She has history of back surgery 19 years ago for sciatic nerve pain. - EENT EENT: DENIES: Sore Throat, Ear Pain, Eye problems - NEURO Neurology: DENIES: Headache, Weakness, Vision blurred, Dizzinesss / Vertigo - CARDIOVASCULAR Cardiovascular: DENIES: Chest pain - RESPIRATORY Respiratory: DENIES: Trouble Breathing, Coughing - GASTROINTESTINAL Gastrointestinal: DENIES: Abdominal Pain, Black / Bloody Stools - REPRODUCTIVE Reproductive: DENIES: : - MUSCULOSKELETAL Musculoskeletal: REPORTS: Extremity pain - RLE Past Medical History - Social History Smoking Status: Current Every Day Smoker Chew tobacco use (# tins/day): No Frequency of alcohol use: None Drug Abuse: Marijuana Family History: Reviewed & Not Pertinent Patient has suicidal ideation: No Patient has homicidal ideation: No Neurological Medical History: Reports: Hx Seizures Renal/ Medical History: Denies: Hx Peritoneal Dialysis Past Surgical History: Reports: Hx Cardiac Surgery - implanted heart monitor, Hx Cholecystectomy, Hx Orthopedic Surgery - back - Immunizations Hx Diphtheria, Pertussis, Tetanus Vaccination: Yes - 2013 Vertical Provider Document - CONSTITUTIONAL Agree With Documented VS: Yes Exam Limitations: No Limitations General Appearance: No Apparent Distress - INFECTION CONTROL TRAVEL OUTSIDE OF THE [place] IN LAST 30 DAYS: No - HEENT HEENT: Atraumatic, Normocephalic - NECK Neck: Normal Inspection - RESPIRATORY Respiratory: Breath Sounds Normal, No Respiratory Distress - CARDIOVASCULAR Cardiovascular: Regular Rhythm Pulses: Normal: Radial, Posterior tibial, Dorsalis pedis - MUSCULOSKELETAL/EXTREMETIES Musculoskeletal/Extremeties: FROM, Tender - Left back and left buttock, No Edema. negative: Eccymosis - NEURO Level of Consciousness: Awake, Alert, Appropriate Motor/Sensory: No Motor Deficit, No Sensory Deficit, No Pronator Drift Deep Tendon Reflexes: 2+ - DERM Integumentary: Warm, Dry Course - Re-evaluation Re-evalutation: 07/04/18 11:02 Differential diagnosis for back pain includes muscle spasm, muscle strain, slipped disc cauda equina syndrome, vertebral fracture, vertebral tumor, epidural abscess, pyelonephritis, or AAA. Based on history and exam, the most likely etiology of the patient's back pain is chronic sciatic nerve pain. Emergent MRI is not indicated at this time because the patient does not have new weakness, or cauda equina syndrome. Patient does not have bladder or bowel dysfunction. Patient does not have history of IV drug use, therefore, I do not suspect an epidural abscess. Patient does not have recent weight loss or night sweats, and does not have a known history of cancer. Patient will receive a lidocaine patch, Toradol, and Decadron here in the emergency department. I will send her home with some Flexeril, which she has taken before. Verbal discharge instructions were given to the patient. They verbalized understanding. They are stable for discharge. - Vital Signs Vital signs: Temp Pulse Resp BP Pulse Ox 97.5 F 56 L 18 139/62 H 99 07/04/18 10:05 07/04/18 10:05 07/04/18 10:05 07/04/18 10:05 07/04/18 10:05 Discharge - Discharge Clinical Impression: Right sciatic nerve pain Condition: Stable Disposition: HOME, SELF-CARE Instructions: Ice Packs ([facility]), Low Back Pain ([facility]), Warm Packs ([facility]) Additional Instructions: You were seen today in the emergency department for back pain. Your back pain is most consistent with sciatic nerve pain. You may take ibuprofen 600 mg and acetaminophen 1000 mg every 6 hours as needed for the pain. You have been prescribed Flexeril, a muscle relaxer. Take as directed. You have also been prescribed lidocaine patches. Use as directed. If you are unable to use the patches, you may also buy [id number] Aspercreme with lidocaine and apply to the area per box instructions. If you develop a fever greater than 100.4 F, lose bowel or bladder function, are unable to walk, or have any symptoms that are worrisome to you, please return to the emergency department. Prescriptions: Cyclobenzaprine HCl [Flexeril 10 mg Tablet] 10 mg PO TIDP PRN #15 tab PRN Reason: Lidocaine [Lidoderm 5% (700 mg) Transdermal Patch] 1 patch TP DAILY PRN #10 adh..patch PRN Reason: Referrals: MARIUM SOLIMAN MANAGER CT [Primary Care Provider] - Follow up in 3-5 days
== END 2018-07-04 11:16 | disposition home or self-care (01) ==
LOC: ER 09:56
DX: M54.31 Sciatica, right side (principal); M54.9 Dorsalgia, unspecified; Z98.890 Other specified postprocedural states; F17.200 Nicotine dependence, unspecified, uncomplicated; F12.10 Cannabis abuse, uncomplicated
CPT/HCPCS: 99283; 96372; J1885; J1100

== ENCOUNTER 2019-03-18 23:40 | Emergency (ER) | payer SELFPAY ==
[2019-03-18 23:48] VITALS: BP 125/67
[2019-03-19] MEDS ORDERED: DOXYCYCLINE HYCLATE 100 MG TABLET PO ONE (00:41)
[2019-03-19] MEDS ORDERED: IBUPROFEN 800 MG TABLET PO ONE (00:42)
--- NOTE | 2019-03-19 01:02 | ER Document Report ---
HPI - HPI Time Seen by Provider: 03/19/19 00:30 Pain Level: 2 Notes: Otherwise healthy 38-year-old female presenting with dog bite to her right hand. Patient reports her and her son were trying to break apart their dogs from fighting, states that she was bitten. This occurred just prior to arrival. She reports dog's immunizations are up-to-date. Her Tdap is up-to-date. She is penicillin allergic. - REPRODUCTIVE Reproductive: DENIES: : Past Medical History - General Information source: Patient - Social History Smoking Status: Current Every Day Smoker Family History: Reviewed & Not Pertinent Patient has suicidal ideation: No Patient has homicidal ideation: No Neurological Medical History: Reports: Hx Seizures Renal/ Medical History: Denies: Hx Peritoneal Dialysis Past Surgical History: Reports: Hx Cardiac Surgery - implanted heart monitor, Hx Cholecystectomy, Hx Orthopedic Surgery - back - Immunizations Hx Diphtheria, Pertussis, Tetanus Vaccination: Yes - 2013 Vertical Provider Document - CONSTITUTIONAL Notes: PHYSICAL EXAMINATION: GENERAL: Well-appearing, well-nourished and in no acute distress. HEAD: Atraumatic, normocephalic. EYES: Pupils equal round extraocular movements intact, conjunctiva are normal. ENT: Nares patent NECK: Normal range of motion LUNGS: No respiratory distress Musculoskeletal: Slightly limited range of motion to right hands, strong radial pulse, cap refill less than 3 seconds. NEUROLOGICAL: Normal speech, normal gait. PSYCH: Normal mood, normal affect. SKIN: Superficial puncture wounds noted to right hands, no active bleeding noted. - INFECTION CONTROL TRAVEL OUTSIDE OF THE [place] IN LAST 30 DAYS: No Course - Re-evaluation Re-evalutation: Patient's wounds were copiously irrigated here in the emergency department. No indication for primary closure. X-ray was obtained and is negative for any fracture dislocation or retained foreign body. Patient will be started on appropriate antibiotics for animal bite. Her Tdap is up-to-date so no indication for this. Strict ED return precautions were discussed, patient verbalized understanding and agreement with same. - Vital Signs Vital signs: Temp Pulse Resp BP Pulse Ox 97.5 F 71 20 125/67 95 03/18/19 23:47 03/18/19 23:47 03/18/19 23:47 03/18/19 23:47 03/18/19 23:47 Discharge - Discharge Clinical Impression: Dog bite Qualifiers: Encounter type: initial encounter Qualified Code(s): W54.0XXA - Bitten by dog, initial encounter Condition: Stable Disposition: HOME, SELF-CARE Additional Instructions: Animal Bites Animal bites are often heavily contaminated with bacteria. In spite of thorough cleansing and proper treatment, these wounds frequently become infected . Bite wounds of the hands are especially prone to complications. Bites are dressed, if possible. Large wounds may require suturing after internal cleansing. Because of infection risk, some large wounds must remain unstitched. Your doctor is trained to advise you on the best treatment for your bite. Call the doctor at once if the wound becomes red, swollen, warm, increasingly painful, or if it begins to drain. Danger signs also include red streaks up the involved extremity, swollen glands in the groin or under the arm, or fever and chills. The risk of rabies from domestic animals is very low. Bats, sick animals, and wild animals may expose you to rabies. The physician, or the health department, will inform you if you will need to receive the rabies vaccine. Doxycycline Doxycycline (Vibramycin, Doryx) is an antibiotic of the tetracycline family. This type of drug is useful for infections of the respiratory tract and genital tract, and is sometimes used for intestinal infections. Unlike most tetracyclines, doxycycline can be taken with food. It is longer acting, and (usually) less prone to side effects than regular tetracycline. Tetracycline antibiotics can stain immature teeth and SHOULD NOT BE TAKEN BY CHILDREN, NURSING MOTHERS, OR WOMEN. Tetracyclines can make you more prone to sunburn. Abdominal cramping, nausea, and diarrhea are occasional side effects. Women may experience vaginal yeast infections. Call the doctor at once if you develop hives, itching, shortness of breath, or lightheadedness. Please take antibiotics as prescribed. Watch very closely for signs of infection to include increasing swelling, pain, redness, red streaking from the area, development of fever or any other worsening symptoms. Prescriptions: Doxycycline Hyclate 100 mg PO BID #20 capsule Referrals: MARIUM SOLIMAN NP [NO LOCAL MD] - Follow up as needed
--- NOTE | 2019-03-19 01:20 | RADIOLOGY REPORT (SQ) ---
EXAM DESCRIPTION: XR HAND 3 OR MORE VIEWS COMPLETED DATE/TME: 03/19/2019 00:39 CLINICAL HISTORY: 38 years ,Female dog bite COMPARISON: 10/23/2013. TECHNIQUE: RIGHT hand, Three view FINDINGS: No acute fractures or dislocations are identified. No osseous destructive lesions. No radiopaque foreign object noted. IMPRESSION: No acute fracture or dislocation is identified.
== END 2019-03-19 01:42 | disposition home or self-care (01) ==
LOC: ER 23:40
DX: S60.571A Other superficial bite of hand of right hand, initial encounter (principal); W54.0XXA Bitten by dog, initial encounter
CPT/HCPCS: 99283

== ENCOUNTER 2020-03-15 12:46 | Emergency (ER) | payer SELFPAY ==
[2020-03-15 13:14] VITALS: BP 152/83
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
[2020-03-15] MEDS ORDERED: ACETAMINOPHEN 325 MG TABLET PO ONE (14:14)
[2020-03-15 14:50] LABS: ABSOLUTE BASOPHILS # (AUTO) 0.1 10^3/uL (0.0-0.2); ABSOLUTE EOSINOPHILS # (AUTO) 0.1 10^3/uL (0.0-0.6); ABSOLUTE LYMPHOCYTES (AUTO) 2.6 10^3/uL (0.5-4.7); ABSOLUTE NEUT (AUTO) 12.6 10^3/uL (1.7-8.2); BASOPHILS % (AUTO) 0.7 % (0-2); EOSINOPHILS % (AUTO) 0.7 % (0-6); HEMATOCRIT 42.6 % (36.0-47.0); HEMOGLOBIN 14.7 g/dL (12.0-15.5); LYMPHOCYTES % (AUTO) 15.6 % (13-45); MEAN CORPUSCULAR HEMOGLOBIN 32.4 pg (27.0-33.4); MEAN CORPUSCULAR HGB CONC 34.6 g/dL (32.0-36.0); MEAN CORPUSCULAR VOLUME 94 fl (80-97); PLATELET COUNT 252 10^3/uL (150-450); RED BLOOD COUNT 4.54 10^6/uL (3.72-5.28); RED CELL DISTRIBUTION WIDTH 14.6 % (11.5-14.0); TOTAL CELLS COUNTED % (AUTO) 100 %; WHITE BLOOD COUNT 16.4 10^3/uL (4.0-10.5)
[2020-03-15] MEDS ORDERED: ONDANSETRON ODT 4 MG TAB (6 TAB/ER DISP) PO PRN (14:58)
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
[2020-03-15 15:12] LABS: ALBUMIN 4.4 g/dL (3.5-5.0); ALKALINE PHOSPHATASE 84 U/L (38-126); ANION GAP 6 (5-19); ASPARTATE AMINO TRANSFERASE 20 U/L (14-36); BILIRUBIN,DIRECT 0.2 mg/dL (0.0-0.4); BILIRUBIN,TOTAL 0.5 mg/dL (0.2-1.3); BLOOD UREA NITROGEN 8 mg/dL (7-20); CALCIUM 9.4 mg/dL (8.4-10.2); CARBON DIOXIDE 29 mmol/L (22-30); CHLORIDE 104 mmol/L (98-107); GLUCOSE 96 mg/dL (75-110); POTASSIUM 4.8 mmol/L (3.6-5.0); TOTAL PROTEIN 7.9 g/dL (6.3-8.2)
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
[2020-03-17 07:38] LABS: HEPATITS B SURFACE ANTIGEN Negative (Negative)
[2020-03-17 07:45] LABS: HEPATITIS C VIRUS ANTIBODY <0.1 s/co ratio (0.0-0.9)
== END 2020-03-15 15:21 | disposition left against medical advice (07) ==
LOC: ER 12:46
DX: S01.85XA Open bite of other part of head, initial encounter (principal); R11.0 Nausea; Y04.1XXA Assault by human bite, initial encounter; Y99.0 Civilian activity done for income or pay; Z88.0 Allergy status to penicillin; Z88.3 Allergy status to other anti-infective agents; Z20.828 Contact with and (suspected) exposure to other viral communicable diseases
CPT/HCPCS: 36415; 70486; 80053; 80074; 84703; 85025; 86701; 99284